=== PATIENT | female | born 1950 ===

== ENCOUNTER 2017-08-28 08:18 | Day surgery (SDC) | payer MEDICARE, MEDICAID ==
[2017-08-25 11:32] VITALS: BMI 27.8
[2017-08-28 09:34] LABS: CALCIUM 8.3 mg/dl (8.6-10.4); POTASSIUM 3.6 mmol/L (3.6-5.2)
[2017-08-28] MEDS ORDERED: Sodium Chloride 0.9% 1,000 ML IV ONE ×2 (10:25)
[2017-08-28] MEDS ORDERED: Etomidate 20 mg/10ml Inj IV ONE (10:26)
[2017-08-28] MEDS ORDERED: Midazolam 2 MG/2 ML VIAL ONE ×2 (10:26→11:02)
[2017-08-28] MEDS: Vancomycin 1 gm/D5W 200 ml 1 GM/200 ML BAG IVPB ONE ×2 (10:34→10:48)
[2017-08-28] MEDS ORDERED: Lidocaine 1% Inj (20ml) ONE (10:48)
[2017-08-28] MEDS ORDERED: Phenylephrine 10 mg/ml Inj ONE (10:54)
[2017-08-28] MEDS ORDERED: ePHEDrine 50 mg/ml Inj ONE (11:46)
[2017-08-28] MEDS ORDERED: Oxycodone/Acetaminophen 5/325 mg Tab PO PRN (11:54)
--- NOTE | 2017-08-28 11:58 | PCM.SURG1 ---
Surgeon's Initial Post Op Note - Surgeon's Notes Surgeon: Jairo Flume Maker: Gilda PGY1 Type of Anesthesia: IV Sedation, Local Pre-Operative Diagnosis: Infected left AV shunt Operative Findings: See operative report. Good left arm distal peripheral perfusion Post-Operative Diagnosis: Infected left AV shunt Operation Performed: Infected Left AV Shunt removal Specimen/Specimens Removed: Left infected AV shunt; Wound culture Estimated Blood Loss: EBL {In ML}: 15 Blood Products Given: N/A Drains Used: No Drains Post-Op Condition: Good Date of Surgery/Procedure: 08/28/17 Time of Surgery/Procedure: 11:58
[2017-08-28 13:43] VITALS: RESP 16
[2017-08-28 14:16] VITALS: BP 109/59; PULSE 94; TEMP 97; O2SAT 99
--- NOTE | 2017-08-28 21:34 | OP ---
PROCEDURE DATE: 08/28/2017 PREOPERATIVE DIAGNOSES: Renal failure. Possible shunt infection, left forearm. PROCEDURE PERFORMED: Removal of infected shunt, left arm. SURGEON: Lazarus Gill Jr., MD. SULPHATE TESTER: Dr. Danielito Vo. ANESTHESIOLOGIST: Mr. Haines. TYPE OF ANESTHESIA: Local with sedation. DESCRIPTION OF PROCEDURE: Patient is a woman with multiple medical problems and presently dialyzed by means of right leg shunt. She presents with a draining sinus from the left arm at the site of an old remnant of a shunt adjacent to the arterial anastomosis. Preoperatively, she had perfusion of the hand as demonstrated by pulse oximetry; no weakly palpable pulse at the wrist. I also discussed with the patient prior to the operation, the need potentially to leave a small sliver of graft on the artery or to potentially ligate the brachial artery. Because of this, we were able to remove the graft entirely. There was no pus, just a sinus. We irrigated this area, we cultured it, and we removed approximately 2 cm long segment of graft. The remaining sliver of graft is attached to the brachial artery. After we removed this, we thoroughly irrigated out the wound. The patient is on systemic antibiotics. We then closed the wound with a layered closure. Blood loss of the procedure was 15 mL. Cultures were taken. Specimens submitted were the culture and the remnant of the graft. Lazarus Gill Jr., MD cc:
== END 2017-08-28 14:03 | disposition home or self-care (01) ==
LOC: C.SDS 08:18
PROVIDERS: ATTEND Surgery Vascular Surgery
DX: T82.7XXA Infection and inflammatory reaction due to other cardiac and vascular devices, implants and grafts, initial encounter (principal); N18.6 End stage renal disease
CPT/HCPCS: 36415; 36815; 80048; 87070; 88300; J2250; J2370; J3010; J3370; J7040